=== PATIENT | male | born 1970 | race Caucasian/White ===

== ENCOUNTER 2018-07-15 09:21 | Emergency (ER) | payer BC ==
[2018-07-15] MEDS ORDERED: ASPIRIN 81 MG TABLET, CHEWABLE PO ONE (10:38)
--- NOTE | 2018-07-15 10:41 | ER Document Report ---
ED Medical Screen (RME) - General Chief Complaint: Abdominal Pain Stated Complaint: CHEST PAIN Time Seen by Provider: 07/15/18 10:36 Notes: Patient says he has been experiencing chest pain since this morning. It is located across the lower anterior chest and across the upper abdominal region. Has never had this before. Feels like gas building up. Has had a bowel movement last night and again today. Has not had any nausea or vomiting or diarrhea. No history of pancreatitis. Does not drink alcohol regularly, last intake about 7 months ago. No abdominal surgeries. No bruits heard. Diffuse mild tenderness of the abdomen, but without masses felt and without guarding or rebound. PMH: Hypertension, GERD. Symptoms do not feel like previous episodes of GERD. TRAVEL OUTSIDE OF THE [place] IN LAST 30 DAYS: No - Related Data Allergies/Adverse Reactions: No Known Allergies Allergy (Verified 07/15/18 10:37) Past Medical History - Social History Chew tobacco use (# tins/day): No Frequency of alcohol use: Rare Drug Abuse: None - Past Medical History Cardiac Medical History: Reports: Hx Hypertension Pulmonary Medical History: Denies: Hx Tuberculosis Renal/ Medical History: Denies: Hx Peritoneal Dialysis Past Surgical History: Reports: Hx Tonsillectomy. Denies: Hx Appendectomy, Hx Bowel Surgery, Hx Cholecystectomy, Hx Coronary Artery Bypass Graft, Hx Gastric Bypass Surgery, Hx Herniorrhaphy, Hx Pacemaker - Immunizations Hx Diphtheria, Pertussis, Tetanus Vaccination: Yes - 2006 Physical Exam - Vital signs Vitals: Temp Pulse Resp BP Pulse Ox 97.3 F 69 16 170/82 H 98 07/15/18 10:18 07/15/18 10:18 07/15/18 10:18 07/15/18 10:18 07/15/18 10:18 Course - Vital Signs Vital signs: Temp Pulse Resp BP Pulse Ox 97.3 F 69 16 170/82 H 98 07/15/18 10:07/15/18 10:18 07/15/18 10:18 07/15/18 10:18 07/15/18 10:18 Doctor's Discharge - Discharge Referrals: REJI ERNST MD [Primary Care Provider] - Follow up as needed
[2018-07-15 11:08] LABS: ABSOLUTE BASOPHILS # (AUTO) 0.2 10^3/uL (0.0-0.2); ABSOLUTE EOSINOPHILS # (AUTO) 0.2 10^3/uL (0.0-0.6); ABSOLUTE MONOCYTES (AUTO) 1.1 10^3/uL (0.1-1.4); ABSOLUTE NEUT (AUTO) 10.7 10^3/uL (1.7-8.2); BASOPHILS % (AUTO) 1.3 % (0-2); EOSINOPHILS % (AUTO) 1.5 % (0-6); HEMATOCRIT 50.7 % (37.9-51.0); HEMOGLOBIN 17.2 g/dL (13.5-17.0); MEAN CORPUSCULAR HGB CONC 33.9 g/dL (32.0-36.0); MEAN CORPUSCULAR VOLUME 91 fl (80-97); MONOCYTES % (AUTO) 7.5 % (3-13); PLATELET COUNT 250 10^3/uL (150-450); RED BLOOD COUNT 5.55 10^6/uL (4.35-5.55); RED CELL DISTRIBUTION WIDTH 13.8 % (11.5-14.0); SEGMENTED NEUTROPHILS % (AUTO) 75.7 % (42-78); TOTAL CELLS COUNTED % (AUTO) 100 %; WHITE BLOOD COUNT 14.1 10^3/uL (4.0-10.5)
[2018-07-15 11:13] LABS: INTERNATIONAL RATION (INR) 0.93
[2018-07-15 11:38] LABS: ALANINE AMINOTRANSFERASE 134 U/L (21-72); ALBUMIN 4.4 g/dL (3.5-5.0); ALKALINE PHOSPHATASE 77 U/L (38-126); ANION GAP 8 (5-19); ASPARTATE AMINO TRANSFERASE 149 U/L (17-59); BILIRUBIN,DIRECT 0.6 mg/dL (0.0-0.4); BILIRUBIN,TOTAL 1.2 mg/dL (0.2-1.3); BLOOD UREA NITROGEN 11 mg/dL (7-20); CALCIUM 9.8 mg/dL (8.4-10.2); CARBON DIOXIDE 27 mmol/L (22-30); CHLORIDE 106 mmol/L (98-107); CREATINE KINASE 59 U/L (55-170); GLUCOSE 98 mg/dL (75-110); POTASSIUM 5.4 mmol/L (3.6-5.0); SODIUM 140.5 mmol/L (137-145); TOTAL PROTEIN 7.1 g/dL (6.3-8.2)
[2018-07-15 11:51] LABS: CREATINE KINASE MB 0.84 ng/mL (<4.55)
[2018-07-15 11:52] LABS: TROPONIN I < 0.012 ng/mL
--- NOTE | 2018-07-15 11:59 | RADIOLOGY REPORT (SQ) ---
EXAM DESCRIPTION: CHEST SINGLE VIEW COMPLETED DATE/TIME: 07/15/2018 11:42 am REASON FOR STUDY: Lower anterior chest pain COMPARISON: 11/24/2011. EXAM PARAMETERS: NUMBER OF VIEWS: One view. TECHNIQUE: Single frontal radiographic view of the chest acquired. RADIATION DOSE: NA LIMITATIONS: None. FINDINGS: LUNGS AND PLEURA: No opacities, masses or pneumothorax. No pleural effusion. MEDIASTINUM AND HILAR STRUCTURES: No masses. Contour normal. HEART AND VASCULAR STRUCTURES: Heart normal in size. Normal vasculature. BONES: No acute findings. HARDWARE: None in the chest. OTHER: No other significant finding. IMPRESSION: NO ACUTE RADIOGRAPHIC FINDING IN THE CHEST. TECHNICAL DOCUMENTATION: JOB ID: [id number] [employer]- All Rights Reserved Reading location - IP/workstation name: [email or web address]
--- NOTE | 2018-07-15 12:00 | ER Document Report ---
ED General - General Mode of Arrival: Ambulatory Information source: Patient TRAVEL OUTSIDE OF THE [place] IN LAST 30 DAYS: No <VERONICA CASTANEDA - Last Filed: 07/15/18 12:09> <SUSI DOSS - Last Filed: 07/15/18 17:43> - General Chief Complaint: Abdominal Pain Stated Complaint: CHEST PAIN Time Seen by Provider: 07/15/18 10:36 Notes: 47-year-old male that presents to the emergency department today with complaints of epigastric abdominal pain that radiates to his back. Patient states he noticed pain when he woke up this morning at 0800. Patient states the pain has been constant since onset. Patient describes the pain as feeling like he is "being crushed from the inside out". Patient states he has not performed any new activities recently that he thinks could have caused the pain. Patient does not have any change in his pain with movement. Patient states when he stands up the pain seems to be more in his back than in his abdomen, but when lying supine the pain is located in his upper abdomen. (VERONICA CASTANEDA) - Related Data Allergies/Adverse Reactions: No Known Allergies Allergy (Verified 07/15/18 10:37) Past Medical History - General Information source: Patient - Social History Smoking Status: Current Every Day Smoker Cigarette use (# per day): Yes - 1-2 ppd Chew tobacco use (# tins/day): No Frequency of alcohol use: Rare Drug Abuse: None Lives with: Family Family History: Reviewed & Not Pertinent Patient has suicidal ideation: No Patient has homicidal ideation: No - Past Medical History Cardiac Medical History: Reports: Hx Hypertension GI Medical History: Reports: Hx Gastroesophageal Reflux Disease Past Surgical History: Reports: Hx Tonsillectomy - Immunizations Hx Diphtheria, Pertussis, Tetanus Vaccination: Yes - 2006 <VERONICA CASTANEDA - Last Filed: 07/15/18 12:09> Review of Systems - Review of Systems Constitutional: No symptoms reported EENT: No symptoms reported Cardiovascular: No symptoms reported Respiratory: No symptoms reported Gastrointestinal: See HPI, Abdominal pain - epigastric radiating to back Genitourinary: No symptoms reported Male Genitourinary: No symptoms reported Musculoskeletal: No symptoms reported Skin: No symptoms reported Hematologic/Lymphatic: No symptoms reported Neurological/Psychological: No symptoms reported -: Yes All other systems reviewed and negative <VERONICA CASTANEDA - Last Filed: 07/15/18 12:09> Physical Exam <TRISTIN CASTANEDAON - Last Filed: 07/15/18 12:09> <SUSI DOSS - Last Filed: 07/15/18 17:43> - Vital signs Vitals: Temp Pulse Resp BP Pulse Ox 97.3 F 69 16 170/82 H 98 07/15/18 10:18 07/15/18 10:18 07/15/18 10:18 07/15/18 10:18 07/15/18 10:18 - Notes Notes: Physical Exam: General: Alert, appears well. HEENT: Normocephalic. Atraumatic. PERRL. Extraocular movements intact. Oropharynx clear. Neck: Supple. Non-tender. Respiratory: No respiratory distress. Coarse breath sounds with forced cough consistent with smoking history. No chest wall tenderness with palpation. Cardiovascular: Regular rate and rhythm. Abdominal: RUQ and epigastric ttp, no lower abdominal ttp. No distension. Normal Bowel Sounds. Back: Non-tender. No deformity or step off. No CVA ttp. Extremities: Moves all four extremities. Upper extremities: Normal inspection. Normal ROM. Lower extremities: Normal inspection. No edema. Normal ROM. Neurological: Normal cognition. AAOx4. Normal speech. Psychological: Normal affect. Normal Mood. Skin: Warm. Dry. Normal color. (VERONICA CASTANEDA) On the patient's left face near the level of the nostrils, there is a small reddish raised tender area with a cystic feel. He reports that this has come up in the past and was treated with antibiotics and it went away. It is returned since yesterday and is becoming very tender to palpate. It is not fluctuant. (SUSI DOSS) Course - Laboratory Result Diagrams: 07/15/18 10:55 07/15/18 10:55 <LEONELTRISTIN BACAON - Last Filed: 07/15/18 12:09> - Laboratory Result Diagrams: 07/15/18 10:55 07/15/18 10:55 - Diagnostic Test Radiology reviewed: Reports reviewed - Chest x-ray does not show any acute process. Gallbladder ultrasound shows mild gallbladder wall thickening without pericholecystic fluid, stones, or positive Oropeza sign. Pancreas is not well- visualized. <SUSI DOSS - Last Filed: 07/15/18 17:43> - Vital Signs Vital signs: Temp Pulse Resp BP Pulse Ox 98.0 F 69 18 134/84 H 94 07/15/18 14:59 07/15/18 10:18 07/15/18 16:09 07/15/18 16:09 07/15/18 16:09 - Laboratory Laboratory results interpreted by me: 07/15/18 07/15/18 07/15/18 10:55 10:55 10:55 WBC 14.1 H Hgb 17.2 H Absolute Neutrophils 10.7 H Potassium 5.4 H Direct Bilirubin 0.6 H AST 149 H ALT 134 H Lipase 309.8 H Discharge <VERONICA CASTANEDA - Last Filed: 07/15/18 12:09> <SUSI DOSS - Last Filed: 07/15/18 17:43> - Discharge Clinical Impression: Infected cyst of skin, Epigastric abdominal pain, Elevated liver function tests , Serum lipase elevation Chest pain Qualifiers: Chest pain type: unspecified Qualified Code(s): R07.9 - Chest pain, unspecified Condition: Stable Disposition: HOME, SELF-CARE Additional Instructions: Chest Pain of Unclear Cause: The exact cause of your chest pain isn't clear. Fortunately, there is no evidence of a dangerous medical condition. Further testing may be required to find the source of the pain. Most often, we find that this pain is coming from the chest wall -- the muscles or rib joints in the chest. But chest pain can come from the lung and lung lining, the esophagus, the heart valves or heart lining, and even the stomach or gallbladder. Rest. Eat lightly until the pain is gone. We may prescribe medicine for pain and inflammation. You should call the physician immediately if the pain radiates to the shoulder, jaw or arms; if you start to run a fever or develop a cough; or if you develop shortness of breath, or other new or alarming symptoms. Abscess: You are developing an abscess (boil)/an infected cyst on your left face. This a pus-forming infection, usually due to staph. Some boils may be left to drain on their own, but most require lancing. From the time the tender lump first appears, it may be three or four days before the abscess is ready to hakeem. Local heat and rest help at this stage of treatment. An antibiotic may prevent development of the infection and avoid the need to open the infected cyst.. The wound will heal with surprisingly little scar. If you develop fever, chilling, worsening pain, or increasing swelling in the area, call the doctor or return immediately. Take medication as prescribed for the infected cyst. Take antacids a few times daily in case the epigastric chest discomfort was related to esophageal irritation and reflux. Follow-up with your doctor this week if not improving. RETURN TO THE EMERGENCY ROOM IF ANY NEW OR WORSENING SYMPTOMS. Prescriptions: Sulfamethoxazole/Trimethoprim [Bactrim Ds Tablet] 2 tab PO BID #40 tablet Scribe Attestation: 07/15/18 14:32 I personally performed the services described in the documentation, reviewed and edited the documentation which was dictated to the scribe in my presence, and it accurately records my words and actions. (SUSI DOSS) Scribe Documentation - Scribe Written by Ritu:: Ritu Parr, 07/15/2018 1213 acting as scribe for :: Clara <VERONICA CASTANEDA - Last Filed: 07/15/18 12:09>
--- NOTE | 2018-07-15 14:32 | EKG REPORT ---
SEVERITY:- OTHERWISE NORMAL ECG - SINUS RHYTHM LEFT AXIS DEVIATION : Confirmed by: Aye Lilly MD 15-Jul-2018 14:31:42
[2018-07-15 15:24] LABS: LIPASE 309.8 U/L (23-300)
--- NOTE | 2018-07-15 16:55 | RADIOLOGY REPORT (SQ) ---
EXAM DESCRIPTION: U/S ABDOMEN LIMITED W/O DOP COMPLETED DATE/TIME: 07/15/2018 4:42 pm REASON FOR STUDY: Upper abdominal pain and fullness COMPARISON: None. TECHNIQUE: Dynamic and static grayscale images acquired of the abdomen and recorded on PACS. Additio nal selected color Doppler and spectral images recorded. LIMITATIONS: Midline bowel gas FINDINGS: PANCREAS: Not well seen LIVER: Normal size, increased echogenicity from fatty infiltration LIVER VASCULATURE: Normal directional flow of the main portal vein and hepatic veins. GALLBLADDER: No gallstones. Borderline gallbladder wall thickening. No pericholecystic fluid. Nega tive sonographic Oropeza's sign ULTRASOUND-DETECTED OROPEZA'S SIGN: Negative. INTRAHEPATIC DUCTS AND COMMON DUCT: CBD and intrahepatic ducts normal caliber. No filling defects. INFERIOR VENA CAVA: Normal flow. AORTA: No aneurysm. RIGHT KIDNEY: Normal size. Normal echogenicity. No solid or suspicious masses. No hydronephrosis. No calcifications. PERITONEAL AND RIGHT PLEURAL SPACE: No ascites or effusions. OTHER: No other significant findings. IMPRESSION: Fatty liver Borderline gallbladder wall thickening without gallstones, pericholecystic fluid or sonographic Jaci y's sign TECHNICAL DOCUMENTATION: JOB ID: [id number] [employer]- All Rights Reserved Reading location - IP/workstation name: [email or web address]
[2018-07-15 17:49] VITALS: BP 143/91
== END 2018-07-15 17:53 | disposition home or self-care (01) ==
LOC: ER 09:21
DX: R10.13 Epigastric pain (principal); R10.816 Epigastric abdominal tenderness; R10.811 Right upper quadrant abdominal tenderness; M54.9 Dorsalgia, unspecified; R07.9 Chest pain, unspecified; L72.9 Follicular cyst of the skin and subcutaneous tissue, unspecified; L08.9 Local infection of the skin and subcutaneous tissue, unspecified; R74.8 Abnormal levels of other serum enzymes; R79.89 Other specified abnormal findings of blood chemistry; F17.210 Nicotine dependence, cigarettes, uncomplicated; I10 Essential (primary) hypertension; Z87.19 Personal history of other diseases of the digestive system
CPT/HCPCS: 36415; 71045; 76705; 80053; 82550; 82553; 83690; 84484; 85025; 85379; 85610; 93005; 93010; 99285